=== PATIENT | male | born 1970 | race Hispanic/Latino ===

== ENCOUNTER 2020-08-01 17:10 | Emergency (ER) | payer SELFPAY ==
[2020-08-01] MEDS ORDERED: SODIUM CHLORIDE 0.9% IRR 500 ML BOTTLE IR ONE (17:16)
--- NOTE | 2020-08-01 17:18 | Event Note ---
ED Screening Note ED Screening Note: r hand dog bite unknown dog open avulsed wound pt crying with pain needs tdap This initial assessment/diagnostic orders/clinical plan/treatment(s) is/are subject to change based on patients health status, clinical progression and re- assessment by fellow clinical providers in the ED. Further treatment and workup at subsequent clinical providers discretion. Patient/guardian urged not to elope from the ED as their condition may be serious if not clinically assessed and managed. Initial orders include: call animal control xr ro fracture tdap wound care antibiotics
[2020-08-01 17:26] VITALS: BP 105/66
--- NOTE | 2020-08-01 17:44 | XRay Report ---
Right hand 4 views INDICATION: Right hand pain. IMPRESSION: Prominent edema noted along the ulnar aspect of the right wrist and hand. There is focal irregularity involving the ulnar styloid process which may represent avulsion from chronic injury. No discrete fracture of the fourth or fifth digit identified but there is prominent overlying laceratio n. Signer Name: Alireza Ortega MD Signed: 08/01/2020 5:40 PM Workstation Name: [id number]
[2020-08-01] MEDS ORDERED: IBUPROFEN 600 MG TAB PO ONE ×2 (18:30→21:00)
[2020-08-01] MEDS ORDERED: TETANUS,DIPH,PERTUSS(ACELL) VACCINE 0.5 ML SYRINGE IM ONE ×2 (18:30→21:00)
[2020-08-01] MEDS ORDERED: NEOMY 3.5 MG/BACIT 400 UNITS/POLY B 5000 UNITS/GM OINT PACKET TP ONE ×2 (18:30→21:00)
[2020-08-01] MEDS ORDERED: AMOXICILLIN/K CLAV 875/125MG TAB PO ONE ×2 (18:30→21:00)
[2020-08-01] MEDS ORDERED: HYDROcodone/ACETAMINOPHEN 5-325 MG TAB PO ONE ×2 (18:30→21:00)
--- NOTE | 2020-08-01 19:33 | Emergency Department Report ---
ED Upper Extremity Inj HPI - General Chief Complaint: Extremity Injury, Upper Stated Complaint: DOG BITE Time Seen by Provider: 08/01/20 17:15 Source: patient Mode of arrival: Ambulatory Limitations: No Limitations - History of Present Illness Initial Comments: This is a 50-year-old male brought by mother nontoxic, well nourished in appearance, no acute signs of distress presents to the ED with c/o of dog bite to right hand that occurred this afternoon around 3 PM. Patient stated was a stray dog. Patient stated was unprovoked. Patient denies any head trauma or any other trauma. PAtient denies any information on vaccines. Patient states that he is not up-to-date with tetanus. Patient denies any fever, chills, nausea, vomiting, headache, stiff neck. Patient denies any allergies or significant past medical history. Patient stated did not call animal control. MD Complaint: Injury to:: hand -: This afternoon Other Extremity Injury: Hand: Right Place: outdoors Severity scale (0 -10): 8 Improves With: none Worsens With: none Context: laceration, animal bite Associated Symptoms: denies other symptoms. denies: weakness, numbness, neck pain, suspects foreign body, nausea/vomiting, heard/felt popping sensat - Related Data Previous Rx's Medication Instructions Recorded Last Taken Type Acetaminophen/Codeine [Tylenol 1 tab PO Q6H PRN #12 tab 08/01/20 Unknown Rx /Codeine # 3 tab] Amoxicillin/K Clav Tab [Augmentin 1 tab PO Q12HR #20 tab 08/01/20 Unknown Rx 875 mg] Allergies Allergy/AdvReac Type Severity Reaction Status Date / Time No Known Allergies Allergy Unverified 08/01/20 18:10 ED Review of Systems ROS: Stated complaint: DOG BITE Other details as noted in HPI Comment: All other systems reviewed and negative Constitutional: denies: chills, fever Eyes: denies: eye pain, eye discharge, vision change ENT: denies: ear pain, throat pain Respiratory: denies: cough, shortness of breath, wheezing Cardiovascular: denies: chest pain, palpitations Endocrine: no symptoms reported Gastrointestinal: denies: abdominal pain, nausea, diarrhea Genitourinary: denies: urgency, dysuria Musculoskeletal: denies: back pain, joint swelling, arthralgia Skin: denies: rash, lesions Neurological: denies: headache, weakness, paresthesias Psychiatric: denies: anxiety, depression Hematological/Lymphatic: denies: easy bleeding, easy bruising ED Past Medical Hx - Past Medical History Previous Medical History?: No - Surgical History Past Surgical History?: No - Medications Home Medications: Home Medications Medication Instructions Recorded Confirmed Last Taken Type Acetaminophen/Codeine [Tylenol 1 tab PO Q6H PRN #12 tab 08/01/20 Unknown Rx /Codeine # 3 tab] Amoxicillin/K Clav Tab [Augmentin 1 tab PO Q12HR #20 tab 08/01/20 Unknown Rx 875 mg] ED Physical Exam - General Limitations: No Limitations General appearance: alert, in no apparent distress - Head Head exam: Present: atraumatic, normocephalic - Eye Eye exam: Present: normal appearance - Neck Neck exam: Present: normal inspection, full ROM. Absent: lymphadenopathy - Respiratory Respiratory exam: Absent: respiratory distress - Cardiovascular Cardiovascular Exam: Present: regular rate - Extremities Exam Extremities exam: Present: full ROM, tenderness, normal capillary refill. Absent: joint swelling - Expanded Upper Extremity Exam Right General: Present: normal inspection Shoulder Exam: Present: normal inspection, full ROM. Absent: tenderness, swelling Upper Arm exam: Present: normal inspection, full ROM. Absent: tenderness, swelling Elbow exam: Present: normal inspection, full ROM. Absent: tenderness, swelling Forearm Wrist exam: Present: normal inspection, full ROM. Absent: tenderness, swelling Hand Wrist exam: Present: full ROM, tenderness, laceration. Absent: swelling, abrasion, ecchymosis, deformity, crepidus, dislocation, erythema, amputation, nail avulsion, subungual hematoma Hand L/R Back: 1 - 35 cm irregular flap laceartion. no foreign body noted. no tendon involvement noted. neurovascular intac Vascular: Present: normal capillary refill. Absent: vascular compromise (Neurovascular within normal limits) - Back Exam Back exam: Present: normal inspection, full ROM - Neurological Exam Neurological exam: Present: alert, oriented X3, normal gait - Psychiatric Psychiatric exam: Present: normal affect, normal mood - Skin Skin exam: Present: warm, dry, intact, normal color. Absent: rash ED Course Vital Signs 08/01/20 17:25 Temperature 98.3 F Pulse Rate 104 H Respiratory 18 Rate Blood Pressure 105/66 [Right] O2 Sat by Pulse 96 Oximetry - Reevaluation(s) Reevaluation #1: 08/01/20 19:33 Patient is speaking in full sentences with no signs of distress noted. - Laceration /Wound Repair Right Hand Wound Location: upper extremity (right hand) Wound Length (cm): 5 Wound's Depth, Shape: irregular, flap Wound Explored: clean Irrigated w/ Saline (ccs): 40 Betadine Prep?: Yes Anesthesia: 1% Lidocaine Volume Anesthetic (ccs): 6 Wound Repaired With: sutures Suture Size/Type: 4:0, proline Number of Sutures: 11 (Very loosely) Layer Closure?: Yes Deep Layer Suture Size/Type: 3:0 (Vicryl) Number Deep Layer Sutures: 4 (Loosely) Progress: Under sterile field, I used Betadine to clean the area. I then used 40 mL of normal saline to flush the area. I then used 1% lidocaine plain and injected 6 mL to the wound. I then used a 4-0 Vicryl with total of 4 stitches placed very loosely for deeper dermis. I then used a 3-0 Prolene to suture the laceration. Number of stitches 11 very loosely. I then applied a sterile 4 x 4 with tape. Minimal bleeding noted but is under control. Patient tolerated procedure well with no signs of distress. ED Medical Decision Making - Radiology Data [facility] [address] [place] [address] XRay Report Signed Patient: HUMERA CHAVARRIA MR#: [id number] : 1970 Acct:[id number] Age/Sex: 50 / M ADM Date: 08/01/20 Loc: ED Attending Dr: Ordering Physician: CHANA TAVARES Date of Service: 08/01/20 Procedure(s): XR hand 3+V RT Accession Number(s): [id number] cc: CHANA TAVARES Fluoro Time In Minutes: Right hand 4 views INDICATION: Right hand pain. IMPRESSION: Prominent edema noted along the ulnar aspect of the right wrist and hand. There is focal irregularity involving the ulnar styloid process which may represent avulsion from chronic injury. No discrete fracture of the fourth or fifth digit identified but there is prominent overlying laceration. Signer Name: Alireza Ortega MD Signed: 08/01/2020 5:40 PM Workstation Name: [id number] Transcribed By: SAMUEL Dictated By: Alireza Ortega MD Electronically Authenticated By: Alireza Ortega MD Signed Date/Time: 08/01/201739 DD/ 37 TD/TT: - Medical Decision Making This is a 50-year-old male that presents with laceration with possible ulnar fracture patient is stable and was examined by me. The laceration suturing has been performed and has been performed and patient tolerated well. Patient received immunoglobulin and rabies vaccine. Patient was instructed to receive the full rabies immunizations on days number 3, 7, and 14. Patient received f irst dose of Augmentin in the ER. Patient is discharged with Augmentin and Tylenol with codeine and was instructed not to operate any machinery when taking Tylenol with Codeine as this may cause drowsiness. The bite wound has been cleaned with soap and water and a sterile dressing has been applied. Patient was educated on proper wound care. Suture removal to be done by orthopedic doctor in 10 days. A ulnar gutter splint has been placed. Post splint assessment: neurovasular intact; normal cap refill <2 second; normal sensation; denies decreaed sensation; normal ROM of digits. As per lumber grader Delio stated animal control has been notified. Patient also received a tetanus in the ER. Patient was instructed to Follow-up with a primary care doctor in 3-5 days or if symptoms worsen and continue return to emergency room as soon as possible. At time of discharge, the patient does not seem toxic or ill in appearance. No acute signs of distress noted. Patient agrees to discharge treatment plan of care. No further questions noted by the patient. This is a 17-year-old male that presents with dog bite. Patient is stable was examined by me. Critical care attestation.: If time is entered above; I have spent that time in minutes in the direct care of this critically ill patient, excluding procedure time. ED Disposition Clinical Impression: Laceration Dog bite Qualifiers: Encounter type: initial encounter Qualified Code(s): W54.0XXA - Bitten by dog, initial encounter Fracture of right ulnar styloid Qualifiers: Encounter type: initial encounter Fracture type: closed Fracture alignment: nondisplaced Qualified Code(s): S52.614A - Nondisplaced fracture of right ulna styloid process, initial encounter for closed fracture Disposition: TO HOME OR SELFCARE Is pt being admited?: No Does the pt Need Aspirin: No Condition: Stable Instructions: Animal Bite, Adult, [id number], Cast or Splint Care, Adult, [id number], Ulnar Fracture Additional Instructions: Follow-up with a orthopedic doctor in 3-5 days or if symptoms worsen and continue return to emergency room as soon as possible. Sutures to be removed and approximately 10 days with the orthopedic follow-up. Do not operate any machinery while taking Tylenol with codeine as this may cause drowsiness. No physical activity that extremity until cleared by orthopedic doctor Follow-up with the referral that you've been provided today on days 08/04/2020, 08/08/2020, and 08/15/2020 for the complete rabbies vaccines. Prescriptions: Amoxicillin/K Clav Tab [Augmentin 875 mg] 1 tab PO Q12HR #20 tab Acetaminophen/Codeine [Tylenol /Codeine # 3 tab] 1 tab PO Q6H PRN #12 tab PRN Reason: Pain , Severe (7-10) Referrals: PRIMARY CARE, [Referring] - 3-5 Days DIANA SANFORD MD [Staff Physician] - 3-5 Days Forms: Work/School Release Form(ED) Time of Disposition: 20:54
[2020-08-01] MEDS ORDERED: RABIES VACCINE, HUMAN DIPLOID/PF 2.5 UNIT/ML VIAL IM ONE (20:00)
[2020-08-01] MEDS ORDERED: RABIES IMMUNE GLOBULIN P/F 300 UNIT/ML INJ 5 ML IM ONE (20:00)
== END 2020-08-01 22:05 | disposition home or self-care (01) ==
LOC: ED 17:10
DX: S52.614A Nondisplaced fracture of right ulna styloid process, initial encounter for closed fracture (principal); S61.411A Laceration without foreign body of right hand, initial encounter; Z79.899 Other long term (current) drug therapy; W54.0XXA Bitten by dog, initial encounter; Y93.89 Activity, other specified; Y92.410 Unspecified street and highway as the place of occurrence of the external cause; Y99.8 Other external cause status
CPT/HCPCS: 12002; 73130; 90375; 90675; 96372; 99283; A6250